=== PATIENT | female | born 1955 | race Caucasian/White ===

== ENCOUNTER → 2017-11-05 | Outpatient (CLI) | payer OTHER ==
[~2017-11-05] MED LIST: ATORVASTATIN CA40 MG PO; AUGMENTIN 500-1 EACH PO; FLEXERIL PO; FLONASE16 GM; FOSAMAX 70 MG T70 MG PO; MYRBETRIQ25 MG PO; NAPROSYN500 MG PO; NORCO 5-325 TA1 EACH PO; TRAMADOL 50 MG50 MG PO; VESICARE10 M1 PO; ZOLOFT50 MG PO
[2017-11-05 13:16] LABS: HEMATOCRIT 42.3 % (37.0-47.0); HEMOGLOBIN 14.8 gm/dL (12.0-15.0); MPV 6.3 fl. (7.2-11.1); RBC 4.37 mil/uL (4.20-5.00); RDW-CV 12.5 % (10.5-14.5); WBC 6.9 thou/uL (4.0-11.0)
[2017-11-05 13:35] LABS: ALBUMIN 3.9 g/dL (3.4-5.0); CALCIUM 9.6 mg/dL (8.5-10.1); CREATININE 0.6 mg/dL (0.6-1.3); POTASSIUM 3.9 mmol/L (3.5-5.1); TOTAL BILIRUBIN 0.5 mg/dL (<0.1-1.0); TOTAL PROTEIN 7.7 g/dL (6.4-8.2)
== END ==
LOC: M.LAB 12:45
PROVIDERS: Nurse Practitioner Family
DX: K57.30 Diverticulosis of large intestine without perforation or abscess without bleeding (principal); K56.7 Ileus, unspecified; R68.83 Chills (without fever)

== ENCOUNTER → 2018-08-31 | Outpatient (CLI) | payer OTHER | LOC: M.RAD 17:02 | DX: J98.11 Atelectasis (principal); Z90.49 Acquired absence of other specified parts of digestive tract ==

== ENCOUNTER → 2019-03-04 | Outpatient (CLI) | payer OTHER | LOC: M.RAD 16:23 | DX: R05 Cough (principal) ==